=== PATIENT | female | born 1980 | race Two or more races ===

== ENCOUNTER 2024-03-20 01:53 | Emergency (ER) | payer OTHER ==
[~2024-03-20] VITALS: Ht 160 cm; Wt 63.5 kg
[2024-03-20 03:00] VITALS: TEMP 98
[2024-03-20 03:44] LABS: APPEARANCE,URINE CLEAR (CLEAR); BILIRUBIN,URINE 1+ (NEGATIVE); BLOOD, URINE 1+ Ery/uL (NEGATIVE); COLOR,URINE YELLOW (YELLOW); KETONES,URINE TRACE mg/dL (NEGATIVE); LEUKOCYTE ESTERASE ,URINE TRACE (NEGATIVE); NITRITE, URINE POSITIVE (NEGATIVE); PROTEIN,URINE 2+ mg/dl (NEGATIVE); UGLUCOSE NEGATIVE (NEGATIVE); UROBILINOGEN,URINE 0.2 EU/dL (0.2)
[2024-03-20 03:53] LABS: ADD URINE CULTURE YES; BACTERIA,URINE 3+ /HPF (None Seen)
[2024-03-20 03:54] LABS: MUCUS,URINE Moderate /LPF (None Seen)
[2024-03-20 03:56] LABS: BASOPHILS % (AUTO) 0.2 % (0.0-2.0); EOSINOPHILS % (AUTO) 0.1 % (0.0-6.0); HEMATOCRIT 40 % (33-45); HEMOGLOBIN 13.2 g/dL (11.5-14.8); LYMPHOCYTES # (AUTO) 2.4 K/uL (0.8-4.8); MEAN CORPUSCULAR HEMOGLOBIN 27 PG (26.0-33.0); MEAN CORPUSCULAR HGB CONC 33 g/dl (31.0-36.0); MEAN CORPUSCULAR VOLUME 82 fL (82-100); MONOCYTES # (AUTO) 0.4 K/uL (0.1-1.30); MONOCYTES % (AUTO) 6.3 % (2.0-12.0); NEUTROPHILS # (AUTO) 3.8 K/uL (1.8-8.9); NEUTROPHILS % (AUTO) 57.4 % (43.0-81.0); PLATELET COUNT (AUTO) 274 K/uL (150-450); RED BLOOD CELL COUNT(AUTO) 4.86 MIL/uL (4.0-5.2); WHITE BLOOD COUNT (AUTO) 6.6 K/uL (4.3-11.0)
[2024-03-20 04:05] LABS: CALCIUM, SERUM 8.2 mg/dL (8.5-10.1); CREATININE 0.7 mg/dL (0.6-1.3)
[2024-03-20 04:11] LABS: ALBUMIN 3.2 g/dL (3.4-5.0); BILIRUBIN,DIRECT 0.2 mg/dL (0.0-0.2); BILIRUBIN,TOTAL 0.4 mg/dL (0.2-1.0)
[2024-03-20] MEDS ORDERED: NITR100C6 PO (05:38)
[2024-03-20 05:41] VITALS: BP 127/84; O2SAT 99
[2024-03-20] MEDS ORDERED: NITROFURANTOIN/MONOHYDRATE MACROCRYSTALS 100 MG CAPSULE ONE (05:41)
[2024-03-20] MEDS ORDERED: POTASSIUM CHLORIDE 20 MEQ TAB.PRT.SR PO ONE (05:42)
[2024-03-20] MEDS: POTASSIUM CHLORIDE 20 MEQ TAB.PRT.SR PO ONE (05:48)
[2024-03-20] MEDS: NITROFURANTOIN/MONOHYDRATE MACROCRYSTALS 100 MG CAPSULE PO ONE (05:48)
== END 2024-03-20 05:52 | disposition home or self-care (01) ==
LOC: ER 02:39
DX: F10.129 Alcohol abuse with intoxication, unspecified (principal); E87.6 Hypokalemia; F32.A Depression, unspecified; K52.9 Noninfective gastroenteritis and colitis, unspecified; K82.8 Other specified diseases of gallbladder; N39.0 Urinary tract infection, site not specified; Z60.2 Problems related to living alone; Y90.9 Presence of alcohol in blood, level not specified
CPT/HCPCS: 36415; 74018; 80048-TC; 80076-TC; 81001; 82962-TC; 83690-TC; 84703-TC; 85025-TC; 87086-TC

== ENCOUNTER 2024-03-22 22:29 | Emergency (ER) | payer OTHER ==
[~2024-03-22] VITALS: Ht 170.2 cm; Wt 84.8 kg
[2024-03-22] MEDS: POTASSIUM CL. PREMIX PERIPHER. 50 ML IV SCH (00:15)
[~2024-03-22 22:29] MED LIST: NITR100C6 PO
[2024-03-22] MEDS ORDERED: PANTOPRAZOLE 40 MG VIAL ONE (22:54)
[2024-03-22] MEDS ORDERED: ONDANSETRON HCL/PF 4 MG/2 ML VIAL ONE (22:54)
[2024-03-22 22:59] LABS: BASOPHILS % (AUTO) 0.1 % (0.0-2.0); HEMATOCRIT 40 % (33-45); HEMOGLOBIN 13.3 g/dL (11.5-14.8); LYMPHOCYTES # (AUTO) 1.5 K/uL (0.8-4.8); MEAN CORPUSCULAR HEMOGLOBIN 27 PG (26.0-33.0); MEAN CORPUSCULAR HGB CONC 33 g/dl (31.0-36.0); MEAN CORPUSCULAR VOLUME 82 fL (82-100); MONOCYTES # (AUTO) 0.3 K/uL (0.1-1.30); MONOCYTES % (AUTO) 3.2 % (2.0-12.0); NEUTROPHILS % (AUTO) 79.7 % (43.0-81.0); PLATELET COUNT (AUTO) 218 K/uL (150-450); RED BLOOD CELL COUNT(AUTO) 4.86 MIL/uL (4.0-5.2); RED CELL DISTRIBUTION WIDTH 14.4 % (11.5-15.0); WHITE BLOOD COUNT (AUTO) 8.8 K/uL (4.3-11.0)
[2024-03-22] MEDS: ONDANSETRON HCL/PF - ER 4 MG/2 ML VIAL IV ONE (23:04)
[2024-03-22] MEDS: PANTOPRAZOLE 40 MG VIAL IV ONE (23:04)
[2024-03-22 23:08] LABS: CALCIUM, SERUM 8.9 mg/dL (8.5-10.1); CARBON DIOXIDE 26 mmol/L (21-32); CHLORIDE 99 mmol/L (98-107); CREATININE 2.1 mg/dL (0.6-1.3); GLUCOSE 134 mg/dL (74-106); POTASSIUM 2.9 mmol/L (3.5-5.1); SODIUM SERUM 137 mmol/L (136-145); UREA NITROGEN, BLOOD 14 mg/dL (7-18)
[2024-03-22] MEDS: IV NS 0.9% 1,000 ML IV ONE (23:13)
[2024-03-22 23:16] LABS: ABG BASE EXCESS -2.2 mmol/L (-2.0-3.0); ABG OXYGEN SATURATION 95.6 % (94.0-98.0); ABG PCO2 24.9 mmHg (32.0-45.0); ABG PH 7.505 (7.350-7.450); ABG PO2 77.7 mmHg (83.0-108.0); ABG TOTAL HEMOGLOBIN 13.5 G/dL (12.0-16.0); COHb 0.1 % (0.5-1.5); MetHb 0.2 % (0.0-1.5); O2Hb 95.3 % (94.0-97.0); SITE, ABG LEFT RADIAL
[2024-03-22 23:18] LABS: LACTIC ACID 4.8 mmol/L (0.4-2.0)
[2024-03-22 23:23] LABS: ALANINE AMINOTRANSFERASE 142 U/L (12-78); ALBUMIN 3.5 g/dL (3.4-5.0); ALKALINE PHOSPHATASE 106 U/L (46-116); ASPARTATE AMINOTRANSFERASE 189 U/L (15-37); BILIRUBIN,TOTAL 0.2 mg/dL (0.2-1.0); NT-PRO BNP 30 pg/mL (0-125); TOTAL PROTEIN, SERUM 8.1 g/dL (6.4-8.2)
[2024-03-22 23:25] LABS: ACETAMINOPHEN <10 ug/ml (10-30); SALICYLATE 1.1 mg/dL (2.8-20.0)
[2024-03-22] MEDS ORDERED: CT SWABBABLE VALVE TRANS SET 1 EA INFUS.SET MC ONE (23:51)
[2024-03-22] MEDS ORDERED: IOHEXOL-300 100 ML VIAL IV ONE (23:51)
[2024-03-22] MEDS ORDERED: IV NS 0.9% 250 ML IV ONE (23:51)
[2024-03-22] MEDS ORDERED: POTASSIUM CL. PREMIX PERIPHER. 100 ML ONE (23:57)
[2024-03-23 00:04] LABS: APPEARANCE,URINE CLEAR (CLEAR); BILIRUBIN,URINE NEGATIVE (NEGATIVE); BLOOD, URINE 3+ Ery/uL (NEGATIVE); COLOR,URINE YELLOW (YELLOW); KETONES,URINE 2+ mg/dL (NEGATIVE); LEUKOCYTE ESTERASE ,URINE NEGATIVE (NEGATIVE); NITRITE, URINE NEGATIVE (NEGATIVE); PROTEIN,URINE 2+ mg/dl (NEGATIVE); UGLUCOSE NEGATIVE (NEGATIVE); UROBILINOGEN,URINE 0.2 EU/dL (0.2)
[2024-03-23 00:10] LABS: AMPHETAMINE, URINE NEGATIVE (NEGATIVE); BARBITURATE, URINE NEGATIVE (NEGATIVE); BENZODIAZEPINE, URINE NEGATIVE (NEGATIVE); CANNABINOID, URINE NEGATIVE (NEGATIVE); COCCAINE, URINE NEGATIVE (NEGATIVE); OPIATE, URINE NEGATIVE (NEGATIVE); PHENCYCLIDINE SCREEN,URINE NEGATIVE (NEGATIVE); PREGNANCY TEST URINE QUAL NEGATIVE (NEGATIVE)
[2024-03-23] MEDS ORDERED: ONDANSETRON HCL/PF 4 MG/2 ML VIAL ONE (00:36)
[2024-03-23] MEDS: ONDANSETRON HCL/PF - ER 4 MG/2 ML VIAL IV ONE (00:40)
[2024-03-23 00:47] LABS: ADD URINE CULTURE NO; BACTERIA,URINE Rare /HPF (None Seen); MUCUS,URINE Moderate /LPF (None Seen); RBC,URINE 21-50 /HPF (0-2)
[2024-03-23 01:42] LABS: BILIRUBIN,DIRECT 0.1 mg/dL (0.0-0.2)
[2024-03-23 01:59] LABS: LACTIC ACID REFLEX 2.6 mmol/L (0.4-1.9)
[2024-03-23] MEDS: IV NS 0.9% 1,000 ML IV ONE (02:27)
[2024-03-23] MEDS ORDERED: METOCLOPRAMIDE HCL 10 MG/2 ML VIAL ONE (05:30)
[2024-03-23] MEDS: METOCLOPRAMIDE HCL 10 MG/2 ML VIAL IV ONE (05:36)
[2024-03-23 06:27] VITALS: BP 116/66; TEMP 99.1; O2SAT 97
== END 2024-03-23 06:43 | disposition home or self-care (01) ==
LOC: ER 22:29
DX: T65.891A Toxic effect of other specified substances, accidental (unintentional), initial encounter (principal); R07.89 Other chest pain; R11.10 Vomiting, unspecified; Y92.89 Other specified places as the place of occurrence of the external cause
CPT/HCPCS: 99285; 96374; 96361 ×2; 96375 ×2; 93005; 71045; 71250; 74176; 85025; 83605 ×3; 84703; 81001; 36415 ×2; 80053; 84484; 83880; 84702; 36600; 80143 ×2; 80307; 96376; 82248; 87040; 80320; 98960; J2405 ×4; J7030 ×2; J7050; J2470; J3480; A4223; Q9967; J2765; G0480